=== PATIENT | female | born 1960 | race Caucasian/White ===

== ENCOUNTER 2019-06-10 12:05 | Emergency (ER) | payer MEDICARE, SELFPAY ==
[2019-06-10 12:06] VITALS: BP 143/101; PULSE 83; RESP 16; TEMP 36.6; O2SAT 99; BMI 27.1
--- NOTE | 2019-06-10 12:21 | CT_ITS ---
STUDY: CT ABDOMEN AND PELVIS WITHOUT CONTRAST REASON FOR EXAM: Female, 59 years old. BACK PAIN RADIATING TO LLQ X DAYS RADIATION DOSAGE (If Supplied By Facility): CTDIvol = ( 7.20 ) mGy, DLP = ( 366.80 ) mGycm TECHNIQUE: Transaxial images were obtained from the dome of the diaphragm to the symphysis pubis without oral contrast, and without intravenous contrast. Sagittal and coronal images were reconstructed. Individualized dose optimization techniques were used for this CT. COMPARISON: Comparison is made with prior examination dated March 27, 2015. FINDINGS: The visualized lung bases are unremarkable. The visualized portions of the heart are within normal limits. Mild hepatomegaly. Normal gallbladder and extrahepatic biliary system. Normal spleen. Normal pancreas. Normal bilateral adrenal glands. Normal right kidney. Normal left kidney. Normal visualized stomach. Normal small intestine. There are colonic diverticula consistent with diverticulosis. The appendix is visualized and appears normal. Normal abdominal aorta. Normal inferior vena cava. Normal retroperitoneum. Normal urinary bladder. Normal abdominal wall. Normal osseous structures. CT/Abdomen/Pelvis without Cont IMPRESSION: Sigmoid diverticulosis. Mild hepatomegaly. Electronically Signed: Galileo Amanda, at 13:28 EDT , Service support ,
[2019-06-10 12:42] LABS: Bacteria 0 SEEN /hpf (None Seen); Mucous, Urine 0 SEEN /hpf (<or=2+); Red Blood Cells-Urine 0 SEEN /hpf (0-5); Squamous Epithelial Cells - UA 0 SEEN /hpf (5-10); White Blood Cells 0 SEEN /hpf (0-5)
[2019-06-10 12:47] LABS: Glucose, Dipstick Normal (Normal); Ketone-Dipstick Negative (Negative); Leukocyte Esterase-Dipstick Negative /ul (Negative); Nitrite-Dipstick Negative (Negative); Occult Blood-Urine Negative /ul (Negative); Protein-Dipstick Negative (Negative); Specific Gravity, Urine 1.005 (1.002-1.030); Urine Bilirubin Dipstick Negative (Negative); Urine Urobilinogen Normal (Normal)
[2019-06-10 12:48] LABS: Absolute Lymphocyte Count 1.73 X10^3/uL (0.83-4.51); Absolute Neutrophil Count 3.3 X10^3/uL (2.0-7.7); Basophil# 0.03 X10^3/uL; Basophil% 0.5 % (0-1); Eosinophil# 0.14 X10^3/uL; Eosinophils% 2.4 % (0-5); Hematocrit 40.8 % (37-47); Hemoglobin 13.9 g/dL (12.0-15.0); Lymphocyte # 1.73 X10^3/ul (4.0); Mean Corp Hgb Conc 34.1 g/dL (32-36); Mean Corpuscular Hgb 31.3 pg (27.0-32.0); Mean Corpuscular Volume 91.9 fL (81-99); Mean Platelet Vol. 10.4 fl (6.2-12.0); Monocyte# 0.52 X10^3/uL; NRBC Flagged by Analyzer 0 % (0-5); Neutrophil # 3.33 X10^3/uL (2.7-7.7); Neutrophil % 57.8 % (47-70); Platelet Count 216 K/mm3 (150-450); RBC Distribution Width CV 12.1 % (11.6-14.6); RBC Distribution Width SD 40.9 fl (35.1-43.9); Red Blood Count 4.44 M/mm3 (4.2-5.4); White Blood Count 5.8 K/mm3 (4.4-11.0)
[2019-06-10 12:51] LABS: Color, Urine Yellow (Yellow); Urine Clarity Clear (Clear)
[2019-06-10 13:00] LABS: AST(SGOT) 32 U/L (15-37); Alanine Aminotransfer ALT/SGPT 41 U/L (13-56); Albumin, Serum 4.1 g/dL (3.2-5.0); Alkaline Phosphatase 109 U/L (45-117); Anion Gap 6 (5-15); BUN 13 mg/dL (7-18); BUN/Creat Ratio 19.2 RATIO (10-20); Calcium,Total 9.8 mg/dL (8.5-10.1); Chloride 105 mmol/L (98-107); Creatinine, Serum 0.68 mg/dL (0.55-1.02); EST Glomerular Filtration Rate 94 mL/min (>60); Est Glom Filt Rate - Afr Amer 113 mL/min (>60); Estimated Creatinine Clearance 75.02 ml/min; Glucose 98 mg/dL (74-106); Potassium 3.8 mmol/L (3.5-5.1); Protein, Total 8.1 g/dL (6.4-8.2); Sodium Level 138 mmol/L (136-145)
--- NOTE | 2019-06-10 13:52 | ED.VIS.GEN ---
History of Present Illness Chief Complaint: Abd Pain Informant: Patient Narrative: Patient presents with left lower quadrant abdominal pain for the past 3 days, she has no fever chills cough or congestion. She has a history of diverticulitis, this feels similar. She has no vaginal discharge or bleeding, she has no diarrhea or constipation and she has no nausea or vomiting. She has no fever chills cough or congestion or dysuria. Past Medical History - Allergies and Home Meds Allergies/Adverse Reactions: Allergies Penicillins Allergy (Verified 06/10/19 12:08) Other HEADACHE ANALOX Allergy (Uncoded 06/10/19 12:08) Swelling Primary Care Physician: Kushal Cao MD [Primary Care Provider] - Past Medical History: - - Hearing impaired, diverticulitis Smoking Status: Unknown if ever smoked Review of Systems All systems negative except as indicated General: Denies: Fever ENT: Denies: Rhinorrhea, Sore throat Cardiovascular: Denies: Chest pain Respiratory: Denies: Dyspnea, Cough Gastrointestinal: Reports: Abdominal pain. Denies: Nausea, Vomiting, Diarrhea, Constipation Musculoskeletal: Denies: Myalgias, Back pain Skin: Denies: Rash Neurological: Denies: Weakness Endocrine: Denies: Polyuria Physical Exam Vital Signs/Narrative: Vital Signs Temp Pulse Resp BP Pulse Ox 06/10/19 12:06 97.8 F 83 16 143/101 H 99 General: Well nourished, Well developed ENT: Moist mucous membranes, No rhinorrhea Cardiovascular: Regular rate Respiratory: No distress, CTA bilaterally Abdomen: Soft, - - There is left lower quadrant abdominal tenderness no guarding or rebound no CVA tenderness no suprapubic tenderness. No right-sided pain or pain at McBurney's. Back: Nontender, Normal Inspection. Negative for: CVA tenderness Extremities: No edema Skin: Normal color Neurological: Alert, Normal Strength Diagnostic/Tx/Re-eval - Medical Decision Making Patient has an unremarkable work-up, CAT scan is significant for diverticulosis but not diverticulitis, however she has similar pain, the CAT scan findings may lag behind therefore I will treat her with analgesia and antibiotics. If she has worsening symptoms, fever chills or any new symptoms she needs to return right away I discussed this with both the patient and her daughter, including returning to the emergency department tomorrow if anything changes. They understand this. ED Disposition - Plan for ED Patient: Disposition: Home or Assisted Living Instructions: ED Abdominal Pain Unkn Cause Fem Prescriptions: Ciprofloxacin [Cipro] 500 mg PO BID #14 tab Prescription Printed Metronidazole [Flagyl] 500 mg PO TID #21 tab Prescription Printed Oxycodone HCl/Acetaminophen [Percocet 5/325] 1 tab PO Q6H PRN PRN 3 Days #12 tab PRN Reason: Pain Prescription Printed Referrals: Kushal Cao MD [Primary Care Provider] - 3-5 Days
[2019-06-10 14:35] VITALS: BP 136/72; PULSE 81; RESP 16; O2SAT 97
== END 2019-06-10 14:36 | disposition home or self-care (01) ==
PROVIDERS: Emergency Provider Emergency Medicine; PCP Family Medicine
DX: R10.32 Left lower quadrant pain (principal)
CPT/HCPCS: 74176; 80053; 81001; 85025; 99283; A4216; J2405